=== PATIENT | male | born 1970 | race African-American/Black ===

== ENCOUNTER 2019-04-15 09:14 | Inpatient (IN) | payer OTHER ==
[2019-04-15 10:36] VITALS: BMI 23.4
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
[2019-04-15] MEDS ORDERED: NICOTINE POLACRILEX 2 MG GUM BUC PRN (11:27)
[2019-04-15] MEDS ORDERED: ACETAMINOPHEN 325 MG TABLET (FP) PO PRN ×2 (11:27)
[2019-04-15] MEDS ORDERED: MAGNESIUM HYDROX 2400MG/30ML ORAL SUSPENSION 30 ML CUP PO PRN (11:27)
[2019-04-15] MEDS ORDERED: chlordiazePOXIDE HCL 10 MG CAPSULE PO PRN (11:27)
[2019-04-15] MEDS ORDERED: MAGNESIUM CITRATE 300 ML BOTTLE PO PRN (11:27)
[2019-04-15] MEDS ORDERED: MAG HYDROX/AL HYDROX/SIMETH 30 ML UNIT-DOSE CUP PO PRN (11:27)
[2019-04-15] MEDS ORDERED: BISMUTH SUBSALICYLATE 524 MG/30 ML UD PO PRN (11:27)
[2019-04-15] MEDS ORDERED: MENTHOL/PHENOL 1 EACH UD MM PRN (11:27)
[2019-04-15] MEDS ORDERED: ALBUTEROL SO4 8 GM HFA INHALER IH PRN (11:30)
[2019-04-15] MEDS: NICOTINE 7 MG/24 HOURS TOPICAL PATCH TD SCH (13:20)
[2019-04-15] MEDS: chlordiazePOXIDE HCL 25 MG CAPSULE PO SCH ×2 (13:22→23:56)
[2019-04-15] MEDS: LOSARTAN POTASSIUM 50 MG TABLET (FP) PO SCH (13:22)
[2019-04-15] MEDS: IBUPROFEN 400 MG TABLET (FP) PO PRN (13:27)
[2019-04-15] MEDS: hydrOXYzine HCL 25 MG TABLET (FP) PO PRN ×2 (13:28→23:56)
[2019-04-15] MEDS: METHOCARBAMOL 500 MG TABLET PO PRN (23:57)
[2019-04-15] MEDS: MELATONIN 5 MG TABLETS PO PRN (23:57)
[2019-04-16] MEDS: THIAMINE HCL 100 MG TABLET (FP) PO SCH ×2 (02:02→23:03)
[2019-04-16] MEDS: chlordiazePOXIDE HCL 25 MG CAPSULE PO SCH ×3 (06:14→23:04)
[2019-04-16] MEDS: METHOCARBAMOL 500 MG TABLET PO PRN (06:15)
[2019-04-16] MEDS: LOSARTAN POTASSIUM 50 MG TABLET (FP) PO SCH (10:10)
[2019-04-16] MEDS: SULFAMETHOXAZOLE/TRIMETHOPRIM 800MG/160MG D.S. TABLET PO SCH (10:10)
[2019-04-16] MEDS: PRENATAL VITAMINS W/ FOLIC ACID TABLET (FP) PO SCH (10:10)
[2019-04-16] MEDS: NICOTINE 7 MG/24 HOURS TOPICAL PATCH TD SCH (10:10)
[2019-04-16] MEDS: IBUPROFEN 400 MG TABLET (FP) PO PRN (10:12)
[2019-04-16 10:17] LABS: BILIRUBIN,TOTAL 0.3 mg/dL (0.2-1); CALCIUM 8.2 mg/dL (8.5-10.1); CREATININE 0.9 mg/dL (0.55-1.3); POTASSIUM 3.7 mmol/L (3.5-5.1); TOT PROT 6.8 g/dl (6.4-8.2)
[2019-04-16 10:26] LABS: HEMATOCRIT 32.4 % (35.4-49); HEMOGLOBIN 11.3 GM/dL (11.7-16.9); MCH 32.4 pg (25.7-33.7); MCHC 34.8 g/dl (32.0-35.9); MEAN CELL VOLUME 92.9 fl (80-96); MEAN PLT VOLUME 9.7 fl (7.5-11.1); RBC 3.48 M/mm3 (4.00-5.60); RDW 12.2 % (11.9-15.9); WHITE BLOOD COUNT 2.3 K/mm3 (4.0-10.0)
[2019-04-16 10:40] LABS: PLATELET COUNT 212 K/MM3 (134-434)
--- NOTE | 2019-04-16 14:18 | PN ---
[facility] CIWA - CIWA Score Nausea/Vomitin-Mild Nausea/No Vomiting Muscle Tremors: 4-Moderate,w/Arms Extend Anxiety: 4-Mod. Anxious/Guarded Agitation: 3 Paroxysmal Sweats: 3 Orientation: 0-Oriented Tacttile Disturbances: 0-None Auditory Disturbances: 0-None Visual Disturbances: 0-None Headache: 0-None Present CIWA-Ar Total Score: 15 BHS Progress Note (SOAP) Subjective: Tremor, body ache, n/v/d (vomited once this morning: unwitnessed). Patient requesting ensure. Objective: 04/16/19 14:09 Last Vital Signs Temp Pulse Resp BP Pulse Ox 97.7 F 75 18 120/66 04/16/19 14:05 04/16/19 14:05 04/16/19 14:05 04/16/19 14:05 Laboratory Tests 04/16/19 04/16/19 04/16/19 07:50 07:50 07:50 WBC 2.3 L RBC 3.48 L Hgb 11.3 L Hct 32.4 L MCV 92.9 MCH 32.4 MCHC 34.8 RDW 12.2 Plt Count 212 MPV 9.7 Sodium 141 Potassium 3.7 Chloride 106 Carbon Dioxide 31 Anion Gap 3 L BUN 16.0 Creatinine 0.9 Est GFR (CKD-EPI)AfAm 118.30 Est GFR (CKD-EPI)NonAf 102.07 Random Glucose 127 H Calcium 8.2 L Total Bilirubin 0.3 AST 22 ALT 29 Alkaline Phosphatase 100 Total Protein 6.8 Albumin 3.0 L RPR Titer Nonreactive Labs reviewed: wbc 2.3, anemia, Ca 8.2, gluc 127 Assessment: 04/16/19 14:18 Withdrawal symptoms Noted with Leukopenia, anemia, hypocalcemia and hyperglycemia Plan: Continue detox Encouraged PO water hydration Leukopenia: good handwashing, repeat CBC Anemia, mild: most likely r/t chronic alcoholism, continue vitamin Hypocalcemia: start calcium carbonate 650mg PO bid Hyperglycemia: repeat fasting glucose, send HbA1c
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
[2019-04-16] MEDS: QUEtiapine FUMARATE 100 MG TABLET (FP) PO SCH (23:04)
[2019-04-16] MEDS: CALCIUM CARBONATE 650 MG TABLET PO SCH (23:04)
[2019-04-16] MEDS: hydrOXYzine HCL 25 MG TABLET (FP) PO PRN (23:04)
[2019-04-16] MEDS: MELATONIN 5 MG TABLETS PO PRN (23:05)
[2019-04-17] MEDS: chlordiazePOXIDE 5 MG CAPSULE PO SCH ×3 (05:49→21:55)
[2019-04-17] MEDS: LOSARTAN POTASSIUM 50 MG TABLET (FP) PO SCH (10:13)
[2019-04-17] MEDS: SULFAMETHOXAZOLE/TRIMETHOPRIM 800MG/160MG D.S. TABLET PO SCH (10:13)
[2019-04-17] MEDS: PRENATAL VITAMINS W/ FOLIC ACID TABLET (FP) PO SCH (10:14)
[2019-04-17] MEDS: NICOTINE 7 MG/24 HOURS TOPICAL PATCH TD SCH (10:14)
[2019-04-17 10:43] LABS: BASO % 0.5 % (0-2.0); EOS % 5.3 % (0-4.5); HEMOGLOBIN 11.1 GM/dL (11.7-16.9); LYMPH % 36.5 % (8-40); MCH 32.6 pg (25.7-33.7); MCHC 34.7 g/dl (32.0-35.9); MEAN CELL VOLUME 93.8 fl (80-96); NEUT % 37.7 % (42.8-82.8); PLATELET COUNT 200 K/MM3 (134-434); RBC 3.41 M/mm3 (4.00-5.60); RDW 12.1 % (11.9-15.9); WHITE BLOOD COUNT 2.2 K/mm3 (4.0-10.0)
[2019-04-17] MEDS ORDERED: ONDANSETRON *ODT* 4 MG TABLET SL PRN (12:28)
[2019-04-17 12:47] LABS: ANISOCYTOSIS 0; MACROCYTOSIS 0; PLATELET ESTIMATE NORMAL
--- NOTE | 2019-04-17 12:55 | PN ---
S CIWA - CIWA Score Nausea/Vomitin Muscle Tremors: 3 Anxiety: 2 Agitation: 0-Normal Activity Paroxysmal Sweats: No Perspiration Orientation: 0-Oriented Tacttile Disturbances: 1-Very Mild Itch/Numbness Auditory Disturbances: 0-None Visual Disturbances: 2-Mild Sensitivity Headache: 0-None Present CIWA-Ar Total Score: 13 BHS Progress Note (SOAP) Subjective: Diarrhea, Vomiting, Tremors. Objective: PATIENT A & O X 3. IN NO ACUTE DISTRESS. 04/17/19 12:51 Vital Signs Temperature 97.3 F L 04/17/19 09:12 Pulse Rate 75 04/17/19 09:12 Respiratory Rate 18 04/17/19 09:12 Blood Pressure 115/66 04/17/19 09:12 O2 Sat by Pulse Oximetry (%) Laboratory Tests 04/16/19 04/16/19 04/16/19 07:50 07:50 07:50 WBC 2.3 L RBC 3.48 L Hgb 11.3 L Hct 32.4 L MCV 92.9 MCH 32.4 MCHC 34.8 RDW 12.2 Plt Count 212 MPV 9.7 Absolute Neuts (auto) Neutrophils % Lymphocytes % Monocytes % Eosinophils % Basophils % Nucleated RBC % Sodium 141 Potassium 3.7 Chloride 106 Carbon Dioxide 31 Anion Gap 3 L BUN 16.0 Creatinine 0.9 Est GFR (CKD-EPI)AfAm 118.30 Est GFR (CKD-EPI)NonAf 102.07 Random Glucose 127 H Fasting Glucose Calcium 8.2 L Total Bilirubin 0.3 AST 22 ALT 29 Alkaline Phosphatase 100 Total Protein 6.8 Albumin 3.0 L RPR Titer Nonreactive 04/17/19 04/17/19 07:00 07:00 WBC 2.2 L RBC 3.41 L Hgb 11.1 L Hct 32.0 L MCV 93.8 MCH 32.6 MCHC 34.7 RDW 12.1 Plt Count 200 MPV 10.0 Absolute Neuts (auto) 0.8 L Neutrophils % 37.7 L Lymphocytes % 36.5 Monocytes % 20.0 H Eosinophils % 5.3 H Basophils % 0.5 Nucleated RBC % 0 Sodium Potassium Chloride Carbon Dioxide Anion Gap BUN Creatinine Est GFR (CKD-EPI)AfAm Est GFR (CKD-EPI)NonAf Random Glucose Fasting Glucose 100 Calcium Total Bilirubin AST ALT Alkaline Phosphatase Total Protein Albumin RPR Titer LABS NOTED. RESULTS OF REPEAT CBC NOTED. ANEMIA STILL NOTED ON REPEAT CBC. RESULTS OF FASTING GLUCOSE LEVEL NOTED (WITH NORMAL RANGE). PATIENT DENIES ANY UNUSUAL BLEEDING (WHILE BRUSHING TEETH, NOSEBLEED, COUGHING UP OF BLOOD, VISUALIZATION OF BLOOD IN URINE OR STOOL, ETC.). PATIENT DOES REPORT HISTORY OF ANEMIA IN PAST. 04/17/19 12:53 Assessment: 04/17/19 12:51 WITHDRAWAL SYMPTOMS. ANEMIA. LEUKOPENIA. 04/17/19 12:53 Plan: CONTINUE DETOX. INCREASE DAILY PO WATER INTAKE. PATIENT IS CURRENTLY RECEIVING DAILY MVI CONTAINING B VITAMINS AND IRON WHILE ADMITTED FOR DETOX. PRN ZOFRAN SL FOR NAUSEA / VOMITING. PRN PEPTO-BISMOL PO FOR DIARRHEA. PATIENT ADVISED TO FOLLOW-UP WITH [facility] AFTER DISCHARGE FROM DETOX FOR GENERAL MEDICAL ASSESSMENT AND FOR ANEMIA NOTED ON DETOX ADMISSION LABORATORY ASSESSMENT. PATIENT VERBALIZED UNDERSTANDING OF RECOMMENDATION. COPIES OF RESULTS OF ALL LABS DRAWN WHILE ADMITTED FOR DETOX WILL BE GIVEN TO PATIENT AT TIME OF DISCHARGE FROM DETOX UNIT.
[2019-04-17] MEDS: CALCIUM CARBONATE 650 MG TABLET PO SCH ×2 (15:05→21:55)
[2019-04-17] MEDS: THIAMINE HCL 100 MG TABLET (FP) PO SCH (21:55)
[2019-04-17] MEDS: QUEtiapine FUMARATE 100 MG TABLET (FP) PO SCH (21:55)
[2019-04-18] MEDS ORDERED: chlordiazePOXIDE HCL 10 MG CAPSULE PO PRN
[2019-04-18] MEDS: chlordiazePOXIDE HCL 10 MG CAPSULE PO SCH ×3 (06:26→22:14)
[2019-04-18] MEDS: PRENATAL VITAMINS W/ FOLIC ACID TABLET (FP) PO SCH (10:19)
[2019-04-18] MEDS: SULFAMETHOXAZOLE/TRIMETHOPRIM 800MG/160MG D.S. TABLET PO SCH (10:19)
[2019-04-18] MEDS: CALCIUM CARBONATE 650 MG TABLET PO SCH ×2 (10:19→22:15)
[2019-04-18] MEDS: LOSARTAN POTASSIUM 50 MG TABLET (FP) PO SCH (10:19)
[2019-04-18] MEDS: NICOTINE 7 MG/24 HOURS TOPICAL PATCH TD SCH (10:19)
--- NOTE | 2019-04-18 10:27 | PN ---
S CIWA - CIWA Score Nausea/Vomitin Muscle Tremors: 2 Anxiety: 1-Mildly Anxious Agitation: 1-Slight > Activity Paroxysmal Sweats: No Perspiration Orientation: 0-Oriented Tacttile Disturbances: 1-Very Mild Itch/Numbness Auditory Disturbances: 0-None Visual Disturbances: 0-None Headache: 2-Mild CIWA-Ar Total Score: 9 BHS Progress Note (SOAP) Subjective: alert,irritable,anxious,interrupted sleep Objective: 04/18/19 10:26 Vital Signs Temperature 97.4 F L 04/18/19 09:35 Pulse Rate 80 04/18/19 09:35 Respiratory Rate 18 04/18/19 09:35 Blood Pressure 140/58 L 04/18/19 09:35 O2 Sat by Pulse Oximetry (%) Assessment: 04/18/19 10:26 withdrawal symptom Plan: continue detox,discharge in am
[2019-04-18] MEDS ORDERED: QUEtiapine FUMARATE 50 MG TABLET ONE (20:18)
[2019-04-18] MEDS: THIAMINE HCL 100 MG TABLET (FP) PO SCH (22:13)
[2019-04-18] MEDS: QUEtiapine FUMARATE 100 MG TABLET (FP) PO SCH (22:13)
[2019-04-18] MEDS: MELATONIN 5 MG TABLETS PO PRN (22:13)
[2019-04-19] MEDS ORDERED: chlordiazePOXIDE HCL 10 MG CAPSULE PO ONE (05:00)
[2019-04-19 07:24] VITALS: BP 150/67; PULSE 74; TEMP 97.9
--- NOTE | 2019-04-19 09:03 | DS ---
[facility] Detox Discharge Summary Admission Date: 04/15/19 Discharge Date: 04/19/19 - History Present History: Alcohol Dependence, Cocaine Dependence - Physical Exam Results Vital Signs: Vital Signs Temperature 97.9 F 04/19/19 07:24 Pulse Rate 74 04/19/19 07:24 Respiratory Rate 18 04/19/19 07:24 Blood Pressure 150/67 04/19/19 07:24 O2 Sat by Pulse Oximetry (%) Pertinent Admission Physical Exam Findings: [facility] Laboratory Tests 04/16/19 04/16/19 04/16/19 07:50 07:50 07:50 WBC 2.3 L RBC 3.48 L Hgb 11.3 L Hct 32.4 L MCV 92.9 MCH 32.4 MCHC 34.8 RDW 12.2 Plt Count 212 MPV 9.7 Absolute Neuts (auto) Neutrophils % Neutrophils % (Manual) Band Neutrophils % Lymphocytes % Lymphocytes % (Manual) Monocytes % Monocytes % (Manual) Eosinophils % Eosinophils % (Manual) Basophils % Basophils % (Manual) Myelocytes % (Man) Promyelocytes % (Man) Blast Cells % (Manual) Nucleated RBC % Metamyelocytes Hypochromia Platelet Estimate Polychromasia Poikilocytosis Anisocytosis Microcytosis Macrocytosis Sodium 141 Potassium 3.7 Chloride 106 Carbon Dioxide 31 Anion Gap 3 L BUN 16.0 Creatinine 0.9 Est GFR (CKD-EPI)AfAm 118.30 Est GFR (CKD-EPI)NonAf 102.07 Random Glucose 127 H Fasting Glucose Hemoglobin A1c % Calcium 8.2 L Total Bilirubin 0.3 AST 22 ALT 29 Alkaline Phosphatase 100 Total Protein 6.8 Albumin 3.0 L RPR Titer Nonreactive 04/17/19 04/17/19 04/17/19 07:00 07:00 07:00 WBC 2.2 L RBC 3.41 L Hgb 11.1 L Hct 32.0 L MCV 93.8 MCH 32.6 MCHC 34.7 RDW 12.1 Plt Count 200 MPV 10.0 Absolute Neuts (auto) 0.8 L Neutrophils % 37.7 L Neutrophils % (Manual) 40.9 L Band Neutrophils % 0.0 Lymphocytes % 36.5 Lymphocytes % (Manual) 32.2 Monocytes % 20.0 H Monocytes % (Manual) 18 H Eosinophils % 5.3 H Eosinophils % (Manual) 4.3 Basophils % 0.5 Basophils % (Manual) 1.1 Myelocytes % (Man) 0 Promyelocytes % (Man) 0 Blast Cells % (Manual) 0 Nucleated RBC % 0 Metamyelocytes 0 Hypochromia 0 Platelet Estimate Normal Polychromasia 0 Poikilocytosis 0 Anisocytosis 0 Microcytosis 0 Macrocytosis 0 Sodium Potassium Chloride Carbon Dioxide Anion Gap BUN Creatinine Est GFR (CKD-EPI)AfAm Est GFR (CKD-EPI)NonAf Random Glucose Fasting Glucose 100 Hemoglobin A1c % 4.1 L Calcium Total Bilirubin AST ALT Alkaline Phosphatase Total Protein Albumin RPR Titer today pt is aaox3 ambulating no acute distress no s/s of withdrawals noted - Treatment Hospital Course: Detox Protocol Followed, Detoxed Safely, Responded well, Discharged Condition Good, Rehab Referral Accepted Patient has Accepted a Rehab Referral to: [facility] - Medication Discharge Medications: Ambulatory Orders Albuterol Sulfate Hfa 2 puff PO PRN 04/15/19 Depakote 500 mg PO DAILY 04/15/19 Diclofenac Sodium Micronized 04/15/19 Hydroxyzine HCl 25 mg PO HS 04/15/19 Ibuprofen 600 mg PO PRN 04/15/19 Losartan Potassium 50 mg PO DAILY 04/15/19 Multivitamin 1 tablet PO DAILY 04/15/19 Quetiapine Fumarate 50 mg PO DAILY 04/15/19 Sulfamethoxazole-Tmp Ds Tablet 1 tab PO DAILY 04/15/19 - Diagnosis (1) Alcohol dependence with uncomplicated withdrawal Current Visit: Yes Status: Chronic (2) Anemia Current Visit: Yes Status: Acute Qualifiers: Anemia type: unspecified type Qualified Code(s): D64.9 - Anemia, unspecified (3) Cocaine dependence Current Visit: Yes Status: Chronic Qualifiers: Substance use status: uncomplicated Qualified Code(s): F14.20 - Cocaine dependence, uncomplicated (4) Methamphetamine dependence Current Visit: Yes Status: Acute (5) Substance-induced anxiety disorder Current Visit: Yes Status: Acute (6) Substance-induced sleep disorder Current Visit: Yes Status: Acute (7) Asthma Current Visit: Yes Status: Chronic Qualifiers: Asthma severity: moderate Asthma persistence: unspecified Asthma complication type: unspecified Qualified Code(s): J45.909 - Unspecified asthma , uncomplicated (8) Bipolar disorder Current Visit: Yes Status: Chronic (9) HIV (human immunodeficiency virus infection) Current Visit: Yes Status: Chronic Qualifiers: HIV symptom status: asymptomatic Qualified Code(s): Z21 - Asymptomatic human immunodeficiency virus [HIV] infection status (10) HTN (hypertension) Current Visit: Yes Status: Chronic Qualifiers: Hypertension type: essential hypertension Qualified Code(s): I10 - Essential (primary) hypertension (11) Nicotine dependence Current Visit: Yes Status: Chronic Qualifiers: Nicotine product type: cigarettes Substance use status: uncomplicated Qualified Code(s): F17.210 - Nicotine dependence, cigarettes, uncomplicated (12) Osteoarthritis Current Visit: Yes Status: Chronic Qualifiers: Osteoarthritis location: knee Osteoarthritis type: primary Laterality: bilateral Qualified Code(s): M17.0 - Bilateral primary osteoarthritis of knee (13) CVA (cerebral vascular accident) Current Visit: Yes Status: Resolved Qualifiers: CVA mechanism: unspecified Qualified Code(s): I63.9 - Cerebral infarction, unspecified - AMA Did Patient Leave Against Medical Advice: No ([facility])
[2019-04-19] MEDS: LOSARTAN POTASSIUM 50 MG TABLET (FP) PO SCH (09:52)
[2019-04-19] MEDS: PRENATAL VITAMINS W/ FOLIC ACID TABLET (FP) PO SCH (09:52)
[2019-04-19] MEDS: SULFAMETHOXAZOLE/TRIMETHOPRIM 800MG/160MG D.S. TABLET PO SCH (09:52)
[2019-04-19] MEDS: CALCIUM CARBONATE 650 MG TABLET PO SCH (09:52)
[2019-04-19] MEDS: NICOTINE 7 MG/24 HOURS TOPICAL PATCH TD SCH (09:53)
== END 2019-04-19 11:45 | disposition other institution (70) | DRG 774 ==
LOC: YASAS 09:14 → Y6N 12:42
PROVIDERS: ADMIT Surgery; ATTEND Surgery
PROC: HZ2ZZZZ Detoxification Services for Substance Abuse Treatment (ICD-10-PCS; principal; 2019-04-15)
DX: F10.230 Alcohol dependence with withdrawal, uncomplicated (principal); F15.20 Other stimulant dependence, uncomplicated; F16.20 Hallucinogen dependence, uncomplicated; F14.20 Cocaine dependence, uncomplicated; F17.210 Nicotine dependence, cigarettes, uncomplicated; F19.280 Other psychoactive substance dependence with psychoactive substance-induced anxiety disorder; F19.282 Other psychoactive substance dependence with psychoactive substance-induced sleep disorder; F31.9 Bipolar disorder, unspecified; I10 Essential (primary) hypertension; D64.9 Anemia, unspecified; J45.909 Unspecified asthma, uncomplicated; Z21 Asymptomatic human immunodeficiency virus [HIV] infection status; M17.0 Bilateral primary osteoarthritis of knee; D72.819 Decreased white blood cell count, unspecified; E83.51 Hypocalcemia; R73.9 Hyperglycemia, unspecified; Z85.038 Personal history of other malignant neoplasm of large intestine; Z86.69 Personal history of other diseases of the nervous system and sense organs; Z88.0 Allergy status to penicillin; Z91.010 Allergy to peanuts; Z91.5 Personal history of self-harm
CPT/HCPCS: 36415; 71046-TC-FY; 80053; 82947; 83036; 85025; 85027; 86593

== ENCOUNTER 2019-04-19 11:49 | Inpatient (IN) | payer OTHER | END 2019-05-02 09:17 | disposition home or self-care (01) | LOC: YASAS 11:49 → Y3W 11:50 | PROC: HZ42ZZZ Group Counseling for Substance Abuse Treatment, Cognitive-Behavioral (ICD-10-PCS; principal; 2019-04-19) | DX: F10.20 Alcohol dependence, uncomplicated (principal); F14.20 Cocaine dependence, uncomplicated; Z21 Asymptomatic human immunodeficiency virus [HIV] infection status; I10 Essential (primary) hypertension; J45.909 Unspecified asthma, uncomplicated; M19.90 Unspecified osteoarthritis, unspecified site; K12.0 Recurrent oral aphthae ==